=== PATIENT | male | born 1985 | race Caucasian/White ===

== ENCOUNTER 2023-07-31 19:57 | Emergency (ER) | payer BC ==
[~2023-07-31] VITALS: Ht 180.3 cm; Wt 95.3 kg
[2023-07-31 20:02] VITALS: BP_SYST 156; PULSE 78; RESP 18; TEMP 98.1; O2SAT 98
[2023-07-31] MEDS: NACL 0.9% 1,000 ML IV ONE ×3 (20:53→22:11)
[2023-07-31 20:58] LABS: BASOPHILS % (AUTO) 0.5 % (0.0-2.0); EOSINOPHILS # (AUTO) 0.2 K/uL (0.0-0.4); EOSINOPHILS % (AUTO) 2.2 % (0.0-4.0); HEMOGLOBIN 13.5 g/dL (14.0-18.0); LYMPHOCYTES # (AUTO) 2.6 K/uL (1.0-5.5); LYMPHOCYTES % (AUTO) 31.4 % (20.5-51.5); MEAN CORPUSCULAR HEMOGLOBIN 33 pg (27-31); MEAN CORPUSCULAR HGB CONC 36 % (32-36); MEAN CORPUSCULAR VOLUME 92 fL (79.0-98.0); MONOCYTES # (AUTO) 0.5 K/uL (0.0-1.0); MONOCYTES % (AUTO) 5.6 % (1.7-9.3); NEUTROPHILS % (AUTO) 60.3 % (40.0-70.0); PLATELET COUNT (AUTO) 195 K/uL (130-430); RED BLOOD CELL COUNT(AUTO) 4.11 MIL/uL (4.2-6.2); RED CELL DISTRIBUTION WIDTH 12.8 % (9.0-15.0); WHITE BLOOD COUNT (AUTO) 8.3 K/uL (4.8-10.8)
[2023-07-31 21:17] LABS: CALCIUM 8.8 mg/dL (8.4-11.0); CREATININE 1.57 mg/dL (0.55-1.30); POTASSIUM 3.9 mmol/L (3.5-5.1)
[2023-07-31 22:34] VITALS: BP_SYST 123; PULSE 67; RESP 18; TEMP 98; O2SAT 99
== END 2023-07-31 22:34 | disposition home or self-care (01) ==
LOC: SED 19:57
DX: R55 Syncope and collapse (principal); E86.0 Dehydration; R11.0 Nausea
CPT/HCPCS: 99284; 96360; 80048; 85025; 36415; 93005; J7030